=== PATIENT | female | born 1980 | race Caucasian/White ===

== ENCOUNTER 2017-02-26 13:18 | Emergency (ER) | payer OTHER ==
[2017-02-26 13:23] VITALS: PULSE 83; RESP 16; TEMP 97.3
--- NOTE | 2017-02-26 13:39 | ED ---
Lower Extremity Injury HPI - General Chief Complaint: Extremity Injury, Lower Stated Complaint: Knee Pain Time Seen by Provider: 02/26/17 13:23 Source: patient, RN notes reviewed, old records reviewed Mode of arrival: ambulatory Limitations: no limitations - History of Present Illness Initial Comments: 36-year-old female presents emergency Department chief complaint of concern of a red irritation over the medial aspect of her left thigh. Patient reports that she was told that she has a torn meniscus by her primary care doctor a few weeks ago. She has a MRI scheduled next week. Patient states that she is concerned because she noticed the red line on her leg today. Patient reports that she googled the symptoms and asked her family members and they told her to come to the emergency department because her concern of a blood clot. Patient denies any swelling over the leg. Denies any throbbing sensation. He denies any previous history of blood clots, smoking or hormone use. Patient states that she has no significant pain with the leg. She just was concerned because she noticed the red line. - Related Data Home Medications Medication Instructions Recorded Confirmed No Known Home Medications [No 02/26/17 02/26/17 Known Home Medications] Allergies Allergy/AdvReac Type Severity Reaction Status Date / Time No Known Allergies Allergy Verified 02/26/17 13:23 Review of Systems ROS Statement: Those systems with pertinent positive or pertinent negative responses have been documented in the HPI. ROS Other: All systems not noted in ROS Statement are negative. Past Medical History Past Medical History: No Reported History History of Any Multi-Drug Resistant Organisms: None Reported Past Surgical History: Section Past Psychological History: No Psychological Hx Reported Smoking Status: Former smoker Past Alcohol Use History: Occasional Past Drug Use History: None Reported General Exam - General Exam Comments Initial Comments: This is a 36-year-old female. No acute distress. Limitations: no limitations Head exam: Present: atraumatic, normocephalic, normal inspection Eye exam: Present: normal appearance, PERRL, EOMI. Absent: scleral icterus, conjunctival injection, periorbital swelling ENT exam: Present: normal exam, mucous membranes moist Neck exam: Present: normal inspection. Absent: tenderness, meningismus, lymphadenopathy Respiratory exam: Present: normal lung sounds bilaterally. Absent: respiratory distress, wheezes, rales, rhonchi, stridor Cardiovascular Exam: Present: regular rate, normal rhythm, normal heart sounds. Absent: systolic murmur, diastolic murmur, rubs, gallop, clicks GI/Abdominal exam: Present: soft, normal bowel sounds. Absent: distended, tenderness, guarding, rebound, rigid Extremities exam: Present: normal inspection, full ROM, normal capillary refill , other ( has a 8 cm superficial red wine over the medial leg. It appears to be a scratch.). Absent: tenderness, pedal edema, joint swelling, calf tenderness Back exam: Present: normal inspection Neurological exam: Present: alert, oriented X3, CN II-XII intact Psychiatric exam: Present: normal affect, normal mood Skin exam: Present: warm, dry, intact, normal color. Absent: rash Course Vital Signs 02/26/17 13:19 Temperature 97.3 F L Pulse Rate 83 Respiratory 16 Rate Blood Pressure 182/84 O2 Sat by Pulse 99 Oximetry Medical Decision Making - Medical Decision Making 36-year-old female presents emergency department with a red line on her left medial thigh. Patient was diagnosed with a tremor meniscus 2 weeks ago and has an MRI scheduled shortly. Patient was concerned with the knee pain and then this new sign of the red line on her leg but there could be some further complications. Discussed that the red line appears to be some irritation from her pants. Or scratch. No palpable cord noted. No swelling or pain in the leg. Patient has no erythema surrounding the leg as well. Patient was informed of this. Discussed that there is no chance of a blood clot at this time. Patient agrees and feels better at this time. Discussed close follow-up with her primary care provider as well as completing her MRI. Patient understands treatment plan will comply. Return parameters were discussed. Disposition Clinical Impression: Abrasion, left thigh, initial encounter Disposition: HOME SELF-CARE Condition: Good Instructions: Abrasion (ED) Additional Instructions: General for any signs of significant swelling or pain in the leg. Wear loose clothing. Monitor the area out if there is any further concern or worsening symptoms return to emergency department or follow-up with her primary care provider. Referrals: Janes Goodman MD [Primary Care Provider] - 1-2 days Time of Disposition: 13:37
[2017-02-26 13:45] VITALS: BP 128/74
== END 2017-02-26 13:44 | disposition home or self-care (01) ==
LOC: EC 13:18
DX: S70.312A Abrasion, left thigh, initial encounter (principal); Z87.891 Personal history of nicotine dependence; X58.XXXA Exposure to other specified factors, initial encounter
CPT/HCPCS: 99283

== ENCOUNTER → 2017-03-11 | Outpatient (CLI) | payer OTHER | END | disposition home or self-care (01) | LOC: RADMRIMAIN 19:23 | PROVIDERS: ATTEND Family Medicine | DX: Z53.9 Procedure and treatment not carried out, unspecified reason (principal) ==

== ENCOUNTER → 2017-03-18 | Outpatient (CLI) | payer OTHER ==
--- NOTE | 2017-03-18 15:11 | MR ---
"EXAMINATION TYPE: MR knee LT wo con DATE OF EXAM: 03/18/2017 COMPARISON: NONE HISTORY: Left knee pain, Possible MMT TECHNIQUE: Multiplanar, multisequence imaging of the left knee is performed without IV contrast. FINDINGS: MEDIAL MENISCUS: Abnormal signal through the posterior horn and body of the medial meniscus compatibl e with tear LATERAL MENISCUS: Anterior and posterior horns are intact without tear. CRUCIATE LIGAMENTS: The anterior and posterior cruciate ligaments are intact and unremarkable. COLLATERAL LIGAMENTS: The medial collateral ligament and lateral collateral ligament complex are inta ct and unremarkable. EXTENSOR MECHANISM: Visualized quadriceps and patellar tendons are intact. EFFUSION: No significant suprapatellar joint effusion. POPLITEAL CYST: No popliteal/miller cyst. TRICOMPARTMENT SPACES: Joint spaces are preserved. No erosive change. Articular cartilage maintained. BONE MARROW SIGNAL: There is diffuse abnormal marrow signal throughout the proximal tibia particularl y along the medial tibial plateau and extending to the midline near the intercondylar eminence. T1 im ages there is a suggestion of a linear area of signal and a fracture nondisplaced of the proximal met aphysis of the tibia is suspected. IMPRESSION: 1. Extensive marrow edema involving the proximal tibia greater along the medial and central portion o f the metaphysis. Suspicion for hairline nondisplaced fracture or macrotrabecular fracture of the pro ximal metaphysis of the tibia. 2. Posterior horn medial meniscal tear. A [place] message has been communicated to Janes Goodman MD via the [employer] | Critical Result sy stem on 03/18/2017 3:07 PM, Message ID [id number]."
== END ==
LOC: RADMRIMAIN 14:16
PROVIDERS: ATTEND Family Medicine
DX: S83.242A Other tear of medial meniscus, current injury, left knee, initial encounter (principal)